=== PATIENT | male | born 1995 | race Caucasian/White ===

== ENCOUNTER 2017-05-06 05:23 | Emergency (ER) | payer BC ==
[~2017-05-06] VITALS: Ht 188 cm; Wt 70.0 kg
[~2017-05-06 05:23] MED LIST: CONCERTA36 MG PO; METH54T PO
[2017-05-06 05:57] LABS: HEMATOCRIT 43.5 % (38.0-50.0); HEMOGLOBIN 14.9 G/DL (12.5-16.6); MCH 29.4 PG (29.0-34.0); MCHC 34.3 G/DL (30.0-36.0); MCV 85.8 FL (86-99); PLATELET COUNT 171 K/uL (156-360); RBC DIS.WIDTH-CV 12.4 % (11.8-14.6); RBC DIS.WIDTH-SD 38.7 % (39-53); RED BLOOD COUNT 5.07 M/uL (4.00-5.50); WHITE BLOOD COUNT 3.8 K/uL (4.1-10.2)
[2017-05-06 06:08] LABS: ALBUMIN 4.2 g/dL (3.2-4.8); CHLORIDE 103 mEq/L (99-109); POTASSIUM 3.7 mEq/L (3.7-5.4); SODIUM 137 mEq/L (136-147)
[2017-05-06 06:11] LABS: GLUCOSE 97 mg/dL (70-99); TOTAL PROTEIN 7.1 g/dL (6.4-8.3)
[2017-05-06 06:13] LABS: TOTAL BILIRUBIN 0.6 mg/dL (0.0-1.0)
[2017-05-06 06:14] LABS: ALKALINE PHOSPHATASE 60 IU/L (3-129); CREATININE 1.2 mg/dL (0.6-1.3); GFR ESTIMATE (CALCULATED) > 59 mL/min/ (58.99-99999)
[2017-05-06 06:15] LABS: UREA NITROGEN (BUN) 16 mg/dL (9-23)
[2017-05-06 06:16] LABS: AST (GOT) 22 IU/L (2-34)
[2017-05-06 06:17] LABS: ALT (GPT) 21 IU/L (3-49)
[2017-05-06 08:39] LABS: APPEARANCE SL.HAZY ((CLEAR)); BILIRUBIN NEGATIVE; BLOOD NEGATIVE; COLOR AMBER ((YELLOW)); GLUCOSE (STRIP) NEGATIVE; KETONES 5; LEUKOCYTES NEGATIVE; NITRITE NEGATIVE; PROTEIN (STRIP) 100; SPECIFIC GRAVITY 1.036 (1.000-1.030)
[2017-05-06 09:05] LABS: EPITHELIAL CELLS RARE /HPF; RED BLOOD CELLS NONE SEEN /HPF (0-5); WHITE BLOOD CELLS 0-5 /HPF (0-5)
[2017-05-06 09:06] LABS: BACTERIA 1+ /HPF; MUCUS 1+ /LPF; UCUL ADDED? NO
[2017-05-06] MEDS ORDERED: PEPCID20 MG PO (09:22)
[2017-05-06] MEDS ORDERED: ZOFRAN4 MG PO (09:22)
[2017-05-06 10:14] VITALS: BP 132/76
== END 2017-05-06 10:38 | disposition home or self-care (01) ==
LOC: EME 05:23
DX: R11.2 Nausea with vomiting, unspecified (principal); F90.9 Attention-deficit hyperactivity disorder, unspecified type; F17.200 Nicotine dependence, unspecified, uncomplicated
CPT/HCPCS: 80053; 81003; 85027; J2405; J7030